=== PATIENT | female | born 1995 | race American Indian/Alaskan Native ===

== ENCOUNTER 2017-06-27 15:07 | Emergency (ER) | payer MEDICAID, OTHER ==
[2017-06-27 15:11] VITALS: BMI 39.6
[2017-06-27 15:12] VITALS: RESP 18; TEMP 97.9; O2SAT 99
--- NOTE | 2017-06-27 16:15 | ED PDOC ---
Arrival/HPI - General Chief Complaint: Eye Problem Time Seen by Provider: 06/27/17 16:08 Historian: Patient - History of Present Illness Narrative History of Present Illness (Text): 06/27/17 16:09 22yr old female presents today with foreign body sensation in left eye. pt states she lifted her covers on her bed 3 nights ago and pt felt something go into the eye. pt states she flushed the eye but still has FB sensation. pt denies blurred vision. pt states she feels the sensation when she looks to the left. pt states she gets a sharp pain in the left lateral corner of the eye. pt denies fever/chills. no other complaints. Past Medical History - Provider Review Nursing Documentation Reviewed: Yes - Travel History Have you recently traveled outside [place] w/in the past 3 mons?: No - Infectious Disease Hx of Infectious Diseases: None - Psychiatric Hx Substance Use: No Family/Social History - Physician Review Nursing Documentation Reviewed: Yes Family/Social History: Unknown Family HX Smoking Status: Never Smoked Hx Alcohol Use: No Hx Substance Use: No Allergies/Home Meds Allergies/Adverse Reactions: Allergies No Known Allergies Allergy (Verified 06/27/17 15:24) Home Medications: Home Meds Medication Instructions Recorded Confirmed No Known Home Med 06/27/17 06/27/17 Review of Systems - Review of Systems Constitutional: absent: Fatigue, Fevers Eyes: Eye Pain, Other (fb sensation). absent: Vision Changes, Photophobia Respiratory: absent: SOB, Cough Cardiovascular: absent: Chest Pain, Palpitations Gastrointestinal: absent: Abdominal Pain, Constipation, Diarrhea, Nausea, Vomiting Musculoskeletal: absent: Arthralgias Skin: absent: Rash, Pruritis Neurological: absent: Headache, Dizziness Physical Exam Vital Signs Reviewed: Yes Vital Signs Temp Pulse Resp BP Pulse Ox 06/27/17 15:11 97.9 F 74 18 129/84 99 Temperature: Afebrile Blood Pressure: Normal Pulse: Regular Respiratory Rate: Normal Appearance: Positive for: Well-Appearing, Non-Toxic, Comfortable Pain Distress: None Mental Status: Positive for: Alert and Oriented X 3 - Systems Exam Head: Present: Atraumatic Pupils: Present: PERRL Extroacular Muscles: Present: EOMI Conjunctiva: Present: Normal, Other (no corneal abrasion or ulceration; small piece of fuzz noted to lateral corner of eye; ). No: Injected Mouth: Present: Moist Mucous Membranes Pharnyx: Present: Normal Neck: Present: Normal Range of Motion Respiratory/Chest: Present: Clear to Auscultation Cardiovascular: Present: Regular Rate and Rhythm Neurological: Present: GCS=15, Speech Normal Skin: Present: Warm, Dry, Normal Color. No: Rashes Psychiatric: Present: Alert, Oriented x 3 Medical Decision Making ED Course and Treatment: 06/27/17 16:42 Patient is nontoxic well appearing in no distress Visual acuity within normal limits left eye; no conjunctival injection noted, PERRLA, extraocular muscles intact. there is a small piece of fuzz noted to the lateral aspect of eye in the corner of the eye that was removed; after removal, all symptoms resolved. there was no corneal abrasion noted, no dye uptake. pt was advised to f/u with PMd and eye doctor. pt was advised immediate return if symptoms worsen, persist or if new symptoms develop. Patient verbalizes understanding of discharge instructions and need for immediate followup. all aspects of this case were discussed the attending of record. Impression: foreign body, eye, removed Followup with the eye doctor within the next 2 days Return immediately if symptoms worsen persist or if new symptoms develop; blurry vision, worsening eye pain, worsening redness or any other concerning symptoms develop. Follow up with her primary care physician within the next 2 days Reassessment Condition: Re-examined, Improved Disposition/Present on Arrival - Present on Arrival Any Indicators Present on Arrival: No History of DVT/PE: No History of Uncontrolled Diabetes: No Urinary Catheter: No History of Decub. Ulcer: No History Surgical Site Infection Following: None - Disposition Have Diagnosis and Disposition been Completed?: Yes Diagnosis: Foreign body, eye Disposition: HOME/ ROUTINE Disposition Time: 16:23 Patient Plan: Discharge Patient Problems: Current Active Problems Problem Status Onset Foreign body, eye Acute Condition: GOOD Discharge Instructions (ExitCare): Foreign Body in Eye (DC) Additional Instructions: Follow up with the eye doctor within the next 2 days. Follow up with the primary care physician within the next 2 days. return immediately if symptoms worsen, persist or if new symptoms develop. Referrals: Nghia Berger MD [Primary Care Provider] - Follow up with primary Rene Matos MD [Staff Provider] - Follow up with primary Forms: [employer] ([place]rainian), WORK NOTE
[2017-06-27 16:44] VITALS: BP 132/80; PULSE 69
== END 2017-06-27 16:45 | disposition home or self-care (01) ==
LOC: ED 15:07
DX: T15.92XA Foreign body on external eye, part unspecified, left eye, initial encounter (principal); X58.XXXA Exposure to other specified factors, initial encounter; Y92.003 Bedroom of unspecified non-institutional (private) residence as the place of occurrence of the external cause